=== PATIENT | male | born 1990 | race African-American/Black ===

== ENCOUNTER 2016-12-02 12:17 | Emergency (ER) | payer OTHER, MEDICARE ==
[~2016-12-02 12:17] MED LIST: ZYPR10TA PO
[2016-12-02 12:34] VITALS: BP 142/72; PULSE 81; RESP 18; O2SAT 100
[2016-12-02] MEDS ORDERED: SODIUM CHLOR 0.9% 1000 ML INJ 1,000 ML IV SCH (12:34)
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
[2016-12-02 12:43] VITALS: RESP 18; O2SAT 100
[2016-12-02] MEDS ORDERED: ONDANSETRON HCL 4 MG/2 ML VIAL IVP ONE (12:45)
[2016-12-02] MEDS ORDERED: SODIUM CHLORIDE 0.9% FLUSH 10 ML FLUSH IVF PRN (12:45)
[2016-12-02] MEDS ORDERED: MORPHINE SULFATE 4 MG/ML INJ IV ONE (12:45)
[2016-12-02] MEDS ORDERED: TETANUS/DIPHTHERIA TOXOID ADULT 0.5 ML VIAL IM ONE (13:00)
[2016-12-02 13:17] LABS: AUTOMATED NEUTROPHIL # 4.4 TH/MM3 (1.8-7.7); BASOPHIL % 0.5 % (0.0-2.0); EOSINOPHIL # 0.4 TH/MM3 (0-0.4); EOSINOPHIL % 4.5 % (0.0-4.0); HEMATOCRIT 42.7 % (39.0-51.0); HEMO FLAGS DIFF FINAL; LYMPH % 40.6 % (9.0-44.0); LYMPHOCYTE # 3.9 TH/MM3 (1.0-4.8); MEAN CELL VOLUME 91.9 FL (80.0-100.0); MEAN CORPUSCULAR HEMOGLOBIN 31.3 PG (27.0-34.0); MEAN CORPUSCULAR HGB CONC 34.1 % (32.0-36.0); MONO % 7.8 % (0.0-8.0); NEUT % 46.6 % (16.0-70.0); PLATELET COUNT 289 TH/MM3 (150-450); RED BLOOD COUNT 4.65 MIL/MM3 (4.50-5.90); RED CELL DISTRIBUTION WIDTH 14.3 % (11.6-17.2); WHITE BLOOD COUNT 9.5 TH/MM3 (4.0-11.0)
[2016-12-02 13:26] LABS: APTT (PATIENT) 24.6 SEC (24.3-30.1); PROTHROMBIN TIME - PATIENT 11.6 SEC (9.8-11.6)
--- NOTE | 2016-12-02 13:27 | RADRPT ---
EXAM DATE/TIME: 12/02/2016 13:13 [facility] COMPARISON: No previous studies available for comparison. INDICATIONS : Patient states RESIDENTIAL today, left hip pain. MEDICAL HISTORY : None. SURGICAL HISTORY : None. ENCOUNTER: Initial ACUITY: 1 day PAIN SCORE: 9/10 LOCATION: Left Hip FINDINGS: Examination of the left hip was performed with AP Pelvis. The primary and secondary trabecular patte rn of the femoral neck is intact. The hip joint is of normal width without significant sclerosis or bony hypertrophy. The acetabulum is grossly intact. CONCLUSION: Normal examination for a patient of this age. Will Mason MD FACR on December 02, 2016 at 13:26 Board Certified Radiologist. This report was verified electronically.
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
--- NOTE | 2016-12-02 13:31 | RADRPT ---
EXAM DATE/TIME: 12/02/2016 13:15 [facility] COMPARISON: No previous studies available for comparison. INDICATIONS : Patient states [facility] today, right upper leg pain. MEDICAL HISTORY : None. SURGICAL HISTORY : None. ENCOUNTER: Initial ACUITY: 1 day PAIN SCORE: 9/10 LOCATION: Right Femur FINDINGS: Two view examination of the right femur demonstrates no evidence of fracture or dislocation. Bony mi neralization is normal. The soft tissue structures are intact. CONCLUSION: Normal examination for a patient of this age. Will Mason MD FACR on December 02, 2016 at 13:29 Board Certified Radiologist. This report was verified electronically.
[2016-12-02 13:37] LABS: POTASSIUM 3.6 MEQ/L (3.5-5.1)
[2016-12-02] MEDS ORDERED: IOHEXOL 350 MG/ML 10 ML VIAL (for RAD DIAG) IV ONE ×2 (14:00→14:13)
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
[2016-12-02] MEDS ORDERED: ROBA750T PO (15:30)
[2016-12-02] MEDS ORDERED: NAPR500T PO (15:30)
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
[2016-12-16] MEDS ORDERED: ZYPR10TA PO (13:26)
== END 2016-12-02 19:14 | disposition home or self-care (01) ==
LOC: NEPC 12:17
DX: S70.311A Abrasion, right thigh, initial encounter (principal); S40.812A Abrasion of left upper arm, initial encounter; S50.812A Abrasion of left forearm, initial encounter; S80.811A Abrasion, right lower leg, initial encounter; T14.8 Other injury of unspecified body region; V23.4XXA Motorcycle driver injured in collision with car, pick-up truck or van in traffic accident, initial encounter; Y93.9 Activity, unspecified; Y92.9 Unspecified place or not applicable; Z23 Encounter for immunization; Y99.9 Unspecified external cause status; F12.10 Cannabis abuse, uncomplicated; F17.210 Nicotine dependence, cigarettes, uncomplicated
CPT/HCPCS: 70450; 71010; 71260; 72125; 73060; 73090; 73502; 73552; 73590; 74177; 80048; 85025; 85610; 85730; 90471; 90714; 96361; 96374; 96375; 99284; J2270; J2405; J7030; L0150; Q9967